=== PATIENT | male | born 1960 | race Caucasian/White ===

== ENCOUNTER → 2020-04-16 | Outpatient (CLI) | payer MEDICARE | LOC: ZLAB.STJ 17:37 | DX: Z01.89 Encounter for other specified special examinations (principal) ==

== ENCOUNTER → 2020-04-16 | Outpatient (REF) | payer OTHER ==
[2020-04-16 17:32] LABS: COLLECTION METHOD CLEAN CATCH
[2020-04-16 17:53] LABS: PH 5 (5-8); SQUAMOUS EPITHELIAL None Seen /hpf; URINE APPEARANCE Clear; URINE BACTERIA None Seen /hpf; URINE BILIRUBIN Negative (NEGATIVE); URINE BLOOD 2+ (NEGATIVE); URINE COLOR Yellow; URINE GLUCOSE Negative (NEGATIVE); URINE KETONE Negative (NEGATIVE); URINE LEUKOCYTE ESTERASE Negative (NEGATIVE); URINE NITRATE Negative (NEGATIVE); URINE PROTEIN(semi-quant) Negative (NEGATIVE); URINE UROBILINOGEN Negative (NEGATIVE); URINE WBC 0-2 /hpf
== END ==
LOC: ZLAB.STJ 17:29
PROVIDERS: Family Medicine
DX: Z01.89 Encounter for other specified special examinations (principal)

== ENCOUNTER 2020-04-19 11:52 | Emergency (ER) | payer MEDICARE ==
[~2020-04-19] VITALS: Ht 175.3 cm; Wt 94.1 kg
[2020-04-19 12:03] VITALS: TEMP 97.6
[2020-04-19 12:27] LABS: HEMATOCRIT 40.9 % (42.0-52.0); MEAN CELL VOLUME 93 fl (80.0-100.0); MEAN CORPUSCULAR HEMOGLOBIN 30 pg (27.0-31.0); MEAN CORPUSCULAR HGB CONC 32 g/dl (33.0-37.0); MEAN PLATELET VOLUME 9.6 fl (7.4-10.4); PLATELET COUNT 336 K/mm3 (130-400); RED BLOOD COUNT 4.38 M/mm3 (4.20-5.60); REDCELL DISTRIBUTION WIDTH-CV 14.3 % (11.5-14.5)
[2020-04-19 12:38] LABS: ALANINE AMINOTRANSFERASE 94 U/L (4-49); ALBUMIN 3.3 gm/dL (3.5-5.0); ALKALINE PHOSPHATASE 163 U/L (50-136); ANION GAP 7 mmol/L (7-16); AST,SGOT 60 U/L (15-37); BILIRUBIN,TOTAL 0.6 mg/dL (0.0-1.0); BLOOD UREA NITROGEN 11 mg/dL (9-20); CALCIUM 8.8 mg/dL (8.4-10.2); CARBON DIOXIDE 33 mmol/L (22-30); CHLORIDE 94 mmol/L (98-107); CREATININE, serum 0.62 (0.66-1.25); GLUCOSE 139 mg/dL (74-106); POTASSIUM 4.1 mmol/L (3.4-5.0); SODIUM 133 mmol/L (137-145); TOTAL PROTEIN 6.8 gm/dL (6.4-8.2)
[2020-04-19 12:54] LABS: TROPONIN-I < 0.012 ng/mL (0.000-0.035)
[2020-04-19 13:12] LABS: BAND 8 % (0-10); LYMPHOCYTE 3 % (20.0-51.0); METAMYELOCYTE 1 % (0-0); NEUTROPHILS 78 % (42.0-75.2)
[2020-04-19 13:13] LABS: HYPOCHROMIA 2+; PLATELET ESTIMATE NORMAL (NORMAL)
[2020-04-19 15:47] VITALS: BP 141/87; PULSE 122
== END 2020-04-19 15:47 ==
LOC: COL.ER 11:52
PROVIDERS: Emergency Medicine
DX: J44.9 Chronic obstructive pulmonary disease, unspecified (principal); J90 Pleural effusion, not elsewhere classified; Z20.822 Contact with and (suspected) exposure to COVID-19; Z88.6 Allergy status to analgesic agent; Z87.891 Personal history of nicotine dependence
CPT/HCPCS: J2060; J3010; Q9967